=== PATIENT | male | born 1995 | race Hispanic/Latino ===

== ENCOUNTER 2018-08-13 17:50 | Emergency (ER) | payer SELFPAY ==
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
[2018-08-13] MEDS ORDERED: CEFTRIAXONE 250 MG/VIAL ONE (19:47)
[2018-08-13] MEDS ORDERED: AZITHROMYCIN 250 MG TAB ONE (19:47)
[2018-08-13] MEDS ORDERED: WATER FOR INJ,STERILE 10 ML ONE (19:47)
== END 2018-08-13 19:56 | disposition home or self-care (01) ==
LOC: ER 17:50
DX: A56.8 Sexually transmitted chlamydial infection of other sites (principal)
CPT/HCPCS: 96372; 99283; J0696